=== PATIENT | male | born 1995 | race African-American/Black ===

== ENCOUNTER 2023-02-25 18:40 | Inpatient (IN) | payer OTHER ==
[2023-02-25] MEDS ORDERED: SODIUM CHLORIDE 0.9% 1000 ML INFUS.BAG IV ONE ×2 (20:27→20:45)
[2023-02-25] MEDS ORDERED: HALOPERIDOL LACTATE 5 MG/ML IM ONE (20:35)
[2023-02-25 22:04] LABS: BASO % 0.8 % (0-2.0); EOS % 3.1 % (0-4.5); HEMATOCRIT 36.8 % (35.4-49); HEMOGLOBIN 12.1 GM/dL (11.7-16.9); LYMPH % 17.4 % (8-40); MCH 26.4 pg (25.7-33.7); MEAN CELL VOLUME 79.9 fl (80-96); MEAN PLT VOLUME 6.9 fl (7.5-11.1); MONO % 5.5 % (3.8-10.2); NEUT % 73.2 % (42.8-82.8); PLATELET COUNT 540 10^3/uL (134-434); RDW 16.9 % (11.9-15.9); WHITE BLOOD COUNT 10.2 K/mm3 (4.0-10.0)
[2023-02-25 22:26] LABS: POTASSIUM 3.9 mmol/L (3.5-5.1)
[2023-02-25 22:28] LABS: BLOOD UREA NITROGEN 9.4 mg/dL (7-18); CALCIUM 9.3 mg/dL (8.5-10.1)
[2023-02-25 22:29] LABS: ALBUMIN 3.2 g/dl (3.4-5.0)
[2023-02-25 22:32] LABS: CREATININE 0.6 mg/dL (0.55-1.3)
[2023-02-25 22:33] LABS: BILIRUBIN,TOTAL 0.2 mg/dL (0.2-1); TOT PROT 7.7 g/dl (6.4-8.2)
[2023-02-25] MEDS ORDERED: VANCOMYCIN 1 GM in D5W (PRE-DOCKED) 1,000 MG/250 ML (RESTRICTED TO ID ONLY IVPB ONE (23:50)
[2023-02-25] MEDS ORDERED: PIPERACILLIN/TAZOB 3.375 GM 3.375 GM in DEXTROSE 5%-WATER - 50 ML IVPB ONE (23:51)
[2023-02-26] MEDS ORDERED: PIPERACILLIN/TAZOB 3.375 GM 3.375 GM/50 ML BAG IVPB ONE (01:48)
[2023-02-26] MEDS ORDERED: VANCOMYCIN/WATER FOR INJ (PEG) 1,000 MG/200 ML BAG IVPB ONE (01:48)
[2023-02-26] MEDS ORDERED: diphenhydrAMINE HCL 25 MG CAPSULE (FP) PO ONE (04:23)
[2023-02-26 06:46] LABS: POTASSIUM 4.4 mmol/L (3.5-5.1)
[2023-02-26 06:48] LABS: CALCIUM 9.1 mg/dL (8.5-10.1); HEMATOCRIT 35.6 % (35.4-49); HEMOGLOBIN 11.5 GM/dL (11.7-16.9); MCH 26.2 pg (25.7-33.7); MCHC 32.3 g/dl (32.0-35.9); MEAN CELL VOLUME 81.1 fl (80-96); MEAN PLT VOLUME 7.6 fl (7.5-11.1); PLATELET COUNT 527 10^3/uL (134-434); RBC 4.38 M/mm3 (4.00-5.60); WHITE BLOOD COUNT 10.1 K/mm3 (4.0-10.0)
[2023-02-26 06:49] LABS: ALBUMIN 2.8 g/dl (3.4-5.0); BLOOD UREA NITROGEN 9.1 mg/dL (7-18); MAGNESIUM 2.1 mg/dL (1.8-2.4)
[2023-02-26 06:52] LABS: CREATININE 0.6 mg/dL (0.55-1.3); PHOSPHOROUS 4.1 mg/dL (2.5-4.9)
[2023-02-26 06:54] LABS: BILIRUBIN,TOTAL 0.2 mg/dL (0.2-1); INR 1.11 (0.83-1.09); PROTHROMBIN TIME (PATIENT) 12.9 SEC (9.7-13.0); TOT PROT 7.2 g/dl (6.4-8.2)
[2023-02-26 06:57] LABS: ACTIVATED PTT 34.1 SECONDS (25.2-36.5)
[2023-02-26] MEDS: INSULIN SLIDING SCALE (NOVOLOG) 1 VIAL SQ SCH ×2 (08:58→12:34)
[2023-02-26] MEDS ORDERED: CLINDAMYCIN 600MG PREMIX IVPB 600 MG/50 ML BAG IVPB SCH ×2 (09:00)
[2023-02-26] MEDS ORDERED: PIPERACILLIN/TAZOB 3.375 GM 3.375 GM in DEXTROSE 5%-WATER - 50 ML IVPB SCH (10:00)
[2023-02-26] MEDS ORDERED: ENOXAPARIN NA (PORCINE) 40 MG/0.4 ML DISP.SYRIN SQ SCH (10:00)
[2023-02-26] MEDS ORDERED: VANCOMYCIN/WATER 1250 MG 1,250 MG/250 ML BAG IVPB SCH ×2 (10:00)
[2023-02-26] MEDS ORDERED: VANCOMYCIN 1 GM in D5W (PRE-DOCKED) 1,000 MG/250 ML (RESTRICTED TO ID ONLY IVPB SCH (10:00)
[2023-02-26 13:21] VITALS: BMI 28.5
[2023-02-26] MEDS ORDERED: COLLAGENASE CLOSTRIDIUM HIST. 30 GRAMS TUBE TP SCH (13:30)
[2023-02-26 14:42] LABS: EPI CELLS 9 /uL (0-25.1); HYALINE CASTS 2 /uL (0-3.1); URINE APPEARANCE CLEAR; URINE BACTERIA 35 /uL (0-1359); URINE BILIRUBIN NEGATIVE (NEGATIVE); URINE COLOR YELLOW; URINE GLUCOSE (UA) NEGATIVE (NEGATIVE); URINE KETONE NEGATIVE (NEGATIVE); URINE LEUK ESTERASE 1+ (NEGATIVE); URINE NITRITE NEGATIVE (NEGATIVE); URINE PROTEIN NEGATIVE (NEGATIVE); URINE RBC 4 /uL (0-23.9); URINE UROBILINOGEN 0.2 mg/dL (0.2-1.0); URINE WBC 57 /uL (0-25.8)
[2023-02-26] MEDS ORDERED: ENOXAPARIN NA (PORCINE) 100 MG/1 ML DISP.SYRIN SQ ONE (15:29)
[2023-02-26] MEDS: COLLAGENASE CLOSTRIDIUM HIST. 30 GRAMS TUBE TP SCH (15:49)
[2023-02-26] MEDS ORDERED: ACETAMINOPHEN 1000 MG/100 ML BAG IVPB ONE (16:30)
[2023-02-26] MEDS ORDERED: ENOXAPARIN NA (PORCINE) 60 MG/0.6 ML DISP.SYRIN SQ ONE (16:45)
[2023-02-26] MEDS: PIPERACILLIN/TAZOB 4.5 GM 4.5 GM in DEXTROSE 5%-WATER 100 ML IVPB SCH (18:25)
[2023-02-27] MEDS: PIPERACILLIN/TAZOB 4.5 GM 4.5 GM in DEXTROSE 5%-WATER 100 ML IVPB SCH ×3 (02:04→18:28)
[2023-02-27] MEDS: COLLAGENASE CLOSTRIDIUM HIST. 30 GRAMS TUBE TP SCH (10:00)
[2023-02-27] MEDS ORDERED: MIDAZOLAM HCL 2 MG/2 ML SINGLE DOSE VIAL ONE ×2 (10:47→11:34)
[2023-02-27] MEDS ORDERED: ONDANSETRON 4 MG/2 ML VIAL ONE (11:34)
[2023-02-27] MEDS ORDERED: DEXAMETHASONE SOD PHOSPHATE 4 MG/1 ML VIAL ONE (11:34)
[2023-02-27] MEDS ORDERED: ONDANSETRON 4 MG/2 ML VIAL IVPUSH PRN (12:32)
[2023-02-27] MEDS ORDERED: LACTATED RINGERS SOLUTION 1,000 ML IV SCH (12:45)
[2023-02-27] MEDS: oxyCODONE HCL 5 MG TABLET PO PRN ×2 (14:13→20:17)
[2023-02-27] MEDS: AMINO ACIDS/PROTEIN HYDROLYS 30 ML LIQUID.PKT PO SCH (18:28)
[2023-02-27] MEDS ORDERED: ACETAMINOPHEN 1000 MG/100 ML BAG IVPB PRN (19:00)
[2023-02-28] MEDS ORDERED: oxyCODONE HCL 5 MG TABLET PO ONE (01:05)
[2023-02-28] MEDS: PIPERACILLIN/TAZOB 4.5 GM 4.5 GM in DEXTROSE 5%-WATER 100 ML IVPB SCH ×3 (01:29→17:08)
[2023-02-28] MEDS: oxyCODONE HCL 5 MG TABLET PO PRN ×2 (01:31→21:32)
[2023-02-28] MEDS: ASCORBIC ACID 500 MG TABLET (FP) PO SCH (09:09)
[2023-02-28] MEDS: APIXABAN 5 MG TABLET PO SCH ×2 (09:09→21:31)
[2023-02-28] MEDS: AMINO ACIDS/PROTEIN HYDROLYS 30 ML LIQUID.PKT PO SCH ×3 (09:09→17:08)
[2023-02-28] MEDS: MULTIVITAMINS (DAILY MVI) TABLET (FP) PO SCH (09:09)
[2023-02-28] MEDS ORDERED: COLLAGENASE CLOSTRIDIUM HIST. 30 GRAMS TUBE TP SCH (10:00)
[2023-02-28] MEDS: SENNOSIDES 8.6MG TABLET (FP) PO PRN (21:31)
[2023-02-28] MEDS: POLYETHYLENE GLYCOL (HEALTHYLAX) 3350 17 GM PACKET PO SCH (21:32)
[2023-03-01] MEDS: PIPERACILLIN/TAZOB 4.5 GM 4.5 GM in DEXTROSE 5%-WATER 100 ML IVPB SCH ×3 (02:38→18:51)
[2023-03-01 09:05] LABS: EOS % 3.9 % (0-4.5); HEMATOCRIT 36.4 % (35.4-49); HEMOGLOBIN 11.8 GM/dL (11.7-16.9); MCH 26.4 pg (25.7-33.7); MCHC 32.3 g/dl (32.0-35.9); MEAN CELL VOLUME 81.7 fl (80-96); MEAN PLT VOLUME 7.6 fl (7.5-11.1); MONO % 7.9 % (3.8-10.2); NEUT % 62.2 % (42.8-82.8); PLATELET COUNT 489 10^3/uL (134-434); RBC 4.46 M/mm3 (4.00-5.60); RDW 17.2 % (11.9-15.9); WHITE BLOOD COUNT 8.1 K/mm3 (4.0-10.0)
[2023-03-01 09:20] LABS: POTASSIUM 4.2 mmol/L (3.5-5.1)
[2023-03-01 09:23] LABS: CALCIUM 9.2 mg/dL (8.5-10.1)
[2023-03-01 09:24] LABS: ALBUMIN 3.1 g/dl (3.4-5.0); BLOOD UREA NITROGEN 13.2 mg/dL (7-18); MAGNESIUM 2.3 mg/dL (1.8-2.4)
[2023-03-01 09:27] LABS: CREATININE 0.6 mg/dL (0.55-1.3)
[2023-03-01 09:28] LABS: BILIRUBIN,TOTAL 0.2 mg/dL (0.2-1); TOT PROT 7.4 g/dl (6.4-8.2)
[2023-03-01] MEDS: ASCORBIC ACID 500 MG TABLET (FP) PO SCH (11:22)
[2023-03-01] MEDS: MULTIVITAMINS (DAILY MVI) TABLET (FP) PO SCH (11:22)
[2023-03-01] MEDS: APIXABAN 5 MG TABLET PO SCH ×2 (11:22→22:01)
[2023-03-01] MEDS: AMINO ACIDS/PROTEIN HYDROLYS 30 ML LIQUID.PKT PO SCH ×3 (11:22→18:51)
[2023-03-01] MEDS: POLYETHYLENE GLYCOL (HEALTHYLAX) 3350 17 GM PACKET PO SCH ×2 (11:23→22:00)
[2023-03-01] MEDS: SENNOSIDES 8.6MG TABLET (FP) PO PRN (11:36)
[2023-03-01] MEDS: oxyCODONE HCL 5 MG TABLET PO PRN ×2 (11:36→20:55)
[2023-03-01] MEDS ORDERED: oxyCODONE HCL 5 MG TABLET PO ONE (14:29)
[2023-03-01] MEDS ORDERED: GABAPENTIN 100 MG CAPSULE PO ONE (16:35)
[2023-03-01] MEDS ORDERED: LIDOCAINE 5% TOPICAL PATCH TP ONE (16:35)
[2023-03-01] MEDS: CYCLOBENZAPRINE HCL 5 MG TABLET PO SCH (18:43)
[2023-03-01] MEDS: LIDOCAINE PATCH REMOVAL MC SCH (22:03)
[2023-03-02] MEDS: oxyCODONE HCL 5 MG TABLET PO PRN ×3 (01:22→18:19)
[2023-03-02] MEDS: PIPERACILLIN/TAZOB 4.5 GM 4.5 GM in DEXTROSE 5%-WATER 100 ML IVPB SCH ×3 (02:50→18:19)
[2023-03-02] MEDS: AMINO ACIDS/PROTEIN HYDROLYS 30 ML LIQUID.PKT PO SCH ×3 (08:15→18:04)
[2023-03-02] MEDS: POLYETHYLENE GLYCOL (HEALTHYLAX) 3350 17 GM PACKET PO SCH ×3 (10:03→23:00)
[2023-03-02] MEDS: CYCLOBENZAPRINE HCL 5 MG TABLET PO SCH (10:04)
[2023-03-02] MEDS: MULTIVITAMINS (DAILY MVI) TABLET (FP) PO SCH (10:04)
[2023-03-02] MEDS: APIXABAN 5 MG TABLET PO SCH ×2 (10:04→23:00)
[2023-03-02] MEDS: ASCORBIC ACID 500 MG TABLET (FP) PO SCH (10:04)
[2023-03-02 10:29] LABS: EOS % 4.5 % (0-4.5); HEMATOCRIT 39.2 % (35.4-49); HEMOGLOBIN 12.2 GM/dL (11.7-16.9); LYMPH % 19.3 % (8-40); MCH 25.8 pg (25.7-33.7); MCHC 31.2 g/dl (32.0-35.9); MEAN CELL VOLUME 82.7 fl (80-96); MEAN PLT VOLUME 7.7 fl (7.5-11.1); MONO % 7.5 % (3.8-10.2); NEUT % 67.7 % (42.8-82.8); PLATELET COUNT 520 10^3/uL (134-434); RBC 4.74 M/mm3 (4.00-5.60); RDW 17.5 % (11.9-15.9); WHITE BLOOD COUNT 9.2 K/mm3 (4.0-10.0)
[2023-03-02 11:05] LABS: POTASSIUM 4.3 mmol/L (3.5-5.1)
[2023-03-02 11:15] LABS: ALBUMIN 3.2 g/dl (3.4-5.0); BLOOD UREA NITROGEN 11.7 mg/dL (7-18); CALCIUM 9.6 mg/dL (8.5-10.1); MAGNESIUM 2.3 mg/dL (1.8-2.4)
[2023-03-02 11:18] LABS: CREATININE 0.6 mg/dL (0.55-1.3)
[2023-03-02 11:20] LABS: BILIRUBIN,TOTAL 0.2 mg/dL (0.2-1); TOT PROT 7.4 g/dl (6.4-8.2)
[2023-03-02] MEDS: SENNOSIDES 8.6MG TABLET (FP) PO PRN (23:00)
[2023-03-02] MEDS: LIDOCAINE PATCH REMOVAL MC SCH (23:02)
[2023-03-03] MEDS: PIPERACILLIN/TAZOB 4.5 GM 4.5 GM in DEXTROSE 5%-WATER 100 ML IVPB SCH ×3 (02:52→17:44)
[2023-03-03 10:09] LABS: EOS % 5.5 % (0-4.5); HEMATOCRIT 36.6 % (35.4-49); HEMOGLOBIN 11.7 GM/dL (11.7-16.9); LYMPH % 18.9 % (8-40); MCH 26.3 pg (25.7-33.7); MEAN CELL VOLUME 82.2 fl (80-96); MEAN PLT VOLUME 7.3 fl (7.5-11.1); MONO % 7.3 % (3.8-10.2); NEUT % 67.3 % (42.8-82.8); PLATELET COUNT 489 10^3/uL (134-434); RBC 4.46 M/mm3 (4.00-5.60); RDW 17.5 % (11.9-15.9)
[2023-03-03] MEDS: AMINO ACIDS/PROTEIN HYDROLYS 30 ML LIQUID.PKT PO SCH ×3 (10:30→17:44)
[2023-03-03 10:47] LABS: POTASSIUM 4.3 mmol/L (3.5-5.1)
[2023-03-03 10:49] LABS: CALCIUM 9.6 mg/dL (8.5-10.1); MAGNESIUM 2.4 mg/dL (1.8-2.4)
[2023-03-03 10:50] LABS: BLOOD UREA NITROGEN 11.3 mg/dL (7-18)
[2023-03-03 10:52] LABS: CREATININE 0.6 mg/dL (0.55-1.3)
[2023-03-03 10:54] LABS: BILIRUBIN,TOTAL 0.3 mg/dL (0.2-1); TOT PROT 7.4 g/dl (6.4-8.2)
[2023-03-03] MEDS: APIXABAN 5 MG TABLET PO SCH (11:37)
[2023-03-03] MEDS: POLYETHYLENE GLYCOL (HEALTHYLAX) 3350 17 GM PACKET PO SCH (11:37)
[2023-03-03] MEDS: CYCLOBENZAPRINE HCL 5 MG TABLET PO SCH (11:37)
[2023-03-03] MEDS: ASCORBIC ACID 500 MG TABLET (FP) PO SCH (11:37)
[2023-03-03] MEDS: MULTIVITAMINS (DAILY MVI) TABLET (FP) PO SCH (11:37)
[2023-03-03] MEDS: oxyCODONE HCL 5 MG TABLET PO PRN (11:44)
[2023-03-03 16:16] VITALS: BP 113/62; PULSE 97; RESP 20; TEMP 98.9
== END 2023-03-03 19:04 | disposition home health service (06) | DRG 364 ==
LOC: JER 18:40 → JERBED 20:24 → J8W 02-26 07:47
PROVIDERS: ADMIT Internal Medicine; ATTEND Nurse Practitioner Family
PROC: 0QB10ZZ Excision of Sacrum, Open Approach (ICD-10-PCS; 2023-02-27)
PROC: 0JB90ZZ Excision of Buttock Subcutaneous Tissue and Fascia, Open Approach (ICD-10-PCS; principal; 2023-02-27 10:30)
DX: L89.154 Pressure ulcer of sacral region, stage 4 (principal); G82.20 Paraplegia, unspecified; I96 Gangrene, not elsewhere classified
CPT/HCPCS: 36415; 80053; 81003; 82962; 83036; 83735; 84100; 85025; 85027; 85610; 85651; 85730; 86140; 87040; 87070; 87076; 87186; 87205; 88304-TC; 93005; 93010; 94760; 99285-25

== ENCOUNTER 2024-12-05 17:34 | Inpatient (IN) | payer MEDICARE, OTHER ==
[2024-12-05] MEDS ORDERED: PIPERACILLIN/TAZOB 3.375 GM 3.375 GM/50 ML BAG IVPB ONE (18:22)
[2024-12-05] MEDS ORDERED: ACETAMINOPHEN INJECTION 100 ML ONE (18:22)
[2024-12-05] MEDS ORDERED: VANCOMYCIN 1 GM PREMIX (F) 1 GM/200 ML BAG ONE (18:22)
[2024-12-05] MEDS: ACETAMINOPHEN 1000 MG/100 ML BAG IVPB ONE (18:30)
[2024-12-05] MEDS: PIPERACILLIN/TAZOB 3.375 GM 3.375 GM in DEXTROSE 5%-WATER - 50 ML IVPB ONE (18:30)
[2024-12-05] MEDS: VANCOMYCIN 1,000 MG in DEXTROSE 5%-WATER - 250 ML IVPB ONE (19:00)
[2024-12-05 19:15] LABS: ABSOLUTE IMMATURE GRANULOCYTES 0.05 x10^3/uL (0.0-0.031); BASOPHILS # 0.05 x10^3/uL (0.01-0.08); EOSINOPHIL % 0.4 % (0.8-7.0); EOSINOPHILS # 0.04 x10^3/uL (0.04-0.54); HEMATOCRIT 43.5 % (40.1-51.0); MCHC 32.2 g/dl (32.3-36.5); MEAN CELL VOLUME 84.6 fl (79.0-92.2); MEAN PLT VOLUME 9.1 fl (9.4-12.4); MONOCYTE # 0.73 x10^3/uL (0.30-0.82); MONOCYTE % 7.3 % (5.3-12.2); PLATELET COUNT 468 x10^3/uL (163-337); RDW 14.6 % (11.9-15.3)
[2024-12-05] MEDS ORDERED: BACITRACIN ZINC 15 GM TUBE TOPICAL OINTMENT ONE (19:15)
[2024-12-05 19:16] LABS: VENOUS BASE EXCESS 2.3 mmol/L (-2-2); VENOUS O2 SATURATION 51.5 % (70-80); VENOUS PCO2 43.2 mmHg (38-52); VENOUS PH 7.417 (7.310-7.410)
[2024-12-05] MEDS: SODIUM CHLORIDE 0.9% 500 ML INFUS.BAG IV ONE (19:24)
[2024-12-05 19:26] LABS: INR 1.39 (0.83-1.09); PROTHROMBIN TIME (PATIENT) 15.1 SEC (9.7-13.0)
[2024-12-05 19:29] LABS: ACTIVATED PTT 36.9 SECONDS (25.2-36.5)
[2024-12-05 19:36] LABS: POTASSIUM 4.6 mmol/L (3.5-5.1)
[2024-12-05 19:38] LABS: CALCIUM 9.3 mg/dL (8.5-10.1)
[2024-12-05 19:39] LABS: ALBUMIN 3.4 g/dl (3.4-5.0); BLOOD UREA NITROGEN 7.5 mg/dL (7-18)
[2024-12-05 19:42] LABS: CREATININE 0.6 mg/dL (0.55-1.3)
[2024-12-05 19:43] LABS: BILIRUBIN,TOTAL 0.4 mg/dL (0.2-1)
[2024-12-05 20:33] LABS: HCV DIAGNOSTIC IN-HOUSE W/RFLX NON-REACTIVE (NONREACTIVE); HIV INTERPRETATION NEGATIVE (NEGATIVE)
[2024-12-05] MEDS ORDERED: GABAPENTIN 300 MG CAPSULE PO PRN (23:41)
[2024-12-05] MEDS ORDERED: ACETAMINOPHEN 325 MG TABLET (FP) PO PRN (23:53)
[2024-12-06] MEDS: ASCORBIC ACID 500 MG TABLET (FP) PO SCH (01:34)
[2024-12-06 02:58] LABS: URINE APPEARANCE CLEAR; URINE BILIRUBIN NEGATIVE (NEGATIVE); URINE COLOR YELLOW; URINE GLUCOSE (UA) NEGATIVE (NEGATIVE); URINE KETONE NEGATIVE (NEGATIVE); URINE LEUK ESTERASE 2+ (NEGATIVE); URINE NITRITE NEGATIVE (NEGATIVE); URINE PROTEIN NEGATIVE (NEGATIVE)
[2024-12-06 03:18] VITALS: BMI 32.8
[2024-12-06] MEDS ORDERED: AMINO ACIDS/PROTEIN HYDROLYS 30 ML LIQUID.PKT PO SCH (08:00)
[2024-12-06 08:45] LABS: EPI CELLS 10 /uL (0-25.1); URINE RBC 6 /uL (0-23.9); URINE WBC 53 /uL (0-25.8)
[2024-12-06 08:46] LABS: HYALINE CASTS 1 /uL (0-3.1); URINE BACTERIA 15 /uL (0-1359)
[2024-12-06 09:26] LABS: ABSOLUTE IMMATURE GRANULOCYTES 0.05 x10^3/uL (0.0-0.031); EOSINOPHIL % 1.2 % (0.8-7.0); EOSINOPHILS # 0.11 x10^3/uL (0.04-0.54); HEMATOCRIT 41.8 % (40.1-51.0); HEMOGLOBIN 13.3 g/dL (13.7-17.5); MCHC 31.8 g/dl (32.3-36.5); MEAN CELL VOLUME 85.3 fl (79.0-92.2); MEAN PLT VOLUME 9.3 fl (9.4-12.4); MONOCYTE # 1.02 x10^3/uL (0.30-0.82); MONOCYTE % 11.4 % (5.3-12.2); PLATELET COUNT 439 x10^3/uL (163-337); RDW 14.7 % (11.9-15.3)
[2024-12-06] MEDS: PANTOPRAZOLE 40 MG TABLET PO SCH (09:56)
[2024-12-06] MEDS: APIXABAN 5 MG TABLET PO SCH (09:56)
[2024-12-06] MEDS: VITAMIN A 10,000 UNITS (3000 MCG) CAPSULE PO SCH (09:56)
[2024-12-06] MEDS: CHOLECALCIFEROL (VIT D3) 5000 UNITS (125 MCG) CAP PO SCH (09:56)
[2024-12-06] MEDS: MULTIVITAMINS THER W-MINERALS COMBO TABLET (FP) PO SCH (09:56)
[2024-12-06] MEDS: ZINC SULFATE 220 MG CAPSULE (FP) PO SCH (09:56)
[2024-12-06 10:07] LABS: ERYTHROCYTE SEDIMENTATION RATE 58 mm/hr (0-10)
[2024-12-06] MEDS: GABAPENTIN 300 MG CAPSULE PO SCH (13:56)
[2024-12-06] MEDS: PIPERACILLIN/TAZOB 2.25 GM 2.25 GM in DEXTROSE 5%-WATER - 50 ML IVPB SCH (18:27)
[2024-12-06] MEDS: SIMETHICONE 80 MG TAB.CHEW (FP) PO SCH (18:52)
[2024-12-07 05:30] VITALS: RESP 18
[2024-12-07 08:37] LABS: ABSOLUTE IMMATURE GRANULOCYTES 0.04 x10^3/uL (0.0-0.031); BASOPHILS # 0.12 x10^3/uL (0.01-0.08); EOSINOPHIL % 2.5 % (0.8-7.0); HEMATOCRIT 45.9 % (40.1-51.0); HEMOGLOBIN 14.5 g/dL (13.7-17.5); MCHC 31.6 g/dl (32.3-36.5); MEAN CELL VOLUME 85.5 fl (79.0-92.2); MONOCYTE # 0.93 x10^3/uL (0.30-0.82); MONOCYTE % 11.5 % (5.3-12.2); RDW 14.8 % (11.9-15.3)
[2024-12-08 09:15] LABS: ABSOLUTE IMMATURE GRANULOCYTES 0.04 x10^3/uL (0.0-0.031); BASOPHILS # 0.08 x10^3/uL (0.01-0.08); EOSINOPHIL % 2.4 % (0.8-7.0); EOSINOPHILS # 0.21 x10^3/uL (0.04-0.54); HEMATOCRIT 44.6 % (40.1-51.0); MCHC 31.4 g/dl (32.3-36.5); MEAN CELL VOLUME 85.3 fl (79.0-92.2); MEAN PLT VOLUME 9.3 fl (9.4-12.4); MONOCYTE # 0.73 x10^3/uL (0.30-0.82); MONOCYTE % 8.4 % (5.3-12.2); PLATELET COUNT 507 x10^3/uL (163-337); RDW 14.6 % (11.9-15.3)
[2024-12-08 10:30] LABS: ERYTHROCYTE SEDIMENTATION RATE 58 mm/hr (0-10)
[2024-12-09] MEDS ORDERED: ACETAMINOPHEN 325 MG TABLET (FP) PO PRN (07:23)
[2024-12-09] MEDS ORDERED: GABAPENTIN 300 MG CAPSULE PO PRN (07:23)
[2024-12-09 10:03] LABS: ABSOLUTE IMMATURE GRANULOCYTES 0.05 x10^3/uL (0.0-0.031); BASOPHILS # 0.07 x10^3/uL (0.01-0.08); EOSINOPHIL % 2.2 % (0.8-7.0); HEMATOCRIT 46.5 % (40.1-51.0); HEMOGLOBIN 14.7 g/dL (13.7-17.5); MCHC 31.6 g/dl (32.3-36.5); MEAN CELL VOLUME 84.9 fl (79.0-92.2); MEAN PLT VOLUME 8.9 fl (9.4-12.4); MONOCYTE # 0.55 x10^3/uL (0.30-0.82); MONOCYTE % 6.2 % (5.3-12.2); PLATELET COUNT 546 x10^3/uL (163-337); RDW 14.6 % (11.9-15.3)
[2024-12-10] MEDS: AMINO ACIDS/PROTEIN HYDROLYS 30 ML LIQUID.PKT PO SCH (17:19)
[2024-12-11] MEDS: metroNIDAZOLE 500 MG TABLET PO SCH (05:38)
[2024-12-11 08:00] LABS: ABSOLUTE IMMATURE GRANULOCYTES 0.07 x10^3/uL (0.0-0.031); BASOPHILS # 0.08 x10^3/uL (0.01-0.08); EOSINOPHIL % 2.1 % (0.8-7.0); EOSINOPHILS # 0.22 x10^3/uL (0.04-0.54); HEMATOCRIT 43.8 % (40.1-51.0); HEMOGLOBIN 13.7 g/dL (13.7-17.5); MCHC 31.3 g/dl (32.3-36.5); MEAN CELL VOLUME 85.2 fl (79.0-92.2); MONOCYTE % 7.5 % (5.3-12.2); PLATELET COUNT 541 x10^3/uL (163-337); RDW 14.6 % (11.9-15.3)
[2024-12-11 08:51] LABS: ERYTHROCYTE SEDIMENTATION RATE 47 mm/hr (0-10)
[2024-12-11 15:28] VITALS: BP 110/70; PULSE 62; TEMP 97.9
[2024-12-12] MEDS ORDERED: metroNIDAZOLE 250 MG TABLET PO SCH (06:00)
== END 2024-12-11 16:25 | disposition home or self-care (01) | DRG 602 ==
LOC: JER 17:34 → JERBED 23:37 → J5S 12-06 02:36
PROVIDERS: ADMIT Internal Medicine; ATTEND Internal Medicine
DX: L08.9 Local infection of the skin and subcutaneous tissue, unspecified (principal); L89.324 Pressure ulcer of left buttock, stage 4; L89.314 Pressure ulcer of right buttock, stage 4; G82.20 Paraplegia, unspecified; T14.8XXA Other injury of unspecified body region, initial encounter; X58.XXXA Exposure to other specified factors, initial encounter; Y93.9 Activity, unspecified; Y92.89 Other specified places as the place of occurrence of the external cause; Y99.9 Unspecified external cause status
CPT/HCPCS: 0241U-QW; 36415; 71045-TC-FY; 72193-TC; 80053; 81003; 82803; 83605; 84484; 85025; 85610; 85651; 85730; 86140; 86803; 86850; 86900; 86901; 87040; 87070; 87186; 87205; 87389; 93005; 93010; 97116-GP; 97162-GP; 99285-25; J0131; Q9967